=== PATIENT | male | born 1985 | race Caucasian/White ===

== ENCOUNTER 2019-12-17 08:18 | Inpatient (IN) | payer OTHER ==
[2019-12-17 08:26] VITALS: RESP 16
[2019-12-17] MEDS ORDERED: SODIUM CHLORIDE 0.9% 500 ML 500 ML IV STA (08:38)
--- NOTE | 2019-12-17 08:42 | ED ---
General Adult HPI <Tee Martínez - Last Filed: 12/17/19 11:23> - General Source: patient, EMS, RN notes reviewed, old records reviewed Mode of arrival: EMS Limitations: no limitations <Nahum Stubbs - Last Filed: 12/17/19 12:22> - General Chief complaint: Overdose Stated complaint: overdose Time Seen by Provider: 12/17/19 08:23 - History of Present Illness Initial comments: 34-year-old male patient presents to ED for evaluation of potential overdose. EMS reportedly reported to a callfor a potential heroin overdose. They stated they arrived on scene to find the patient unresponsive. Patient was administered 2 doses of intranasal Narcan and became responsive. Upon evaluation patient denies any drug usage. Patient reports that he does have right parasternal chest pains reproducible upon palpation he presses on it. Patient reports that he tested positive for Covid19 3 weeks ago at an emergency room in [facility]. Patient was he has not been at the hospital.. Reports he still has a mild cough. Denies any other complaints at this time. Systemic: Pt denies fatigue, fever/chills, rash. Pt denies weakness, night sweats, weight loss. Neuro: Pt denies headache, visual disturbances, syncope or pre-syncope. HEENT: Pt denies ocular discharge or irritation, otalgia, rhinorrhea, pharyngitis or notable lymphadenopathy. Cardiopulmonary: Pt denies SOB, heart palpitations, dyspnea on exertion. Abdominal/GI: Pt denies abdominal pain, n/v/d. : Pt denies dysuria, burning w/ urination, frequency/urgency. Denies new onset urinary or bowel incontinence. MSK: Pt denies myalgia, loss of strength or function in extremities. Neuro: Pt denies new onset weakness, paresthesias. (Nahum Stubbs) - Related Data Allergies Allergy/AdvReac Type Severity Reaction Status Date / Time NSAIDS (Non-Steroidal Allergy Rash/Hives Verified 12/17/19 08:59 Anti-Inflamma Review of Systems ROS Other: All systems not noted in ROS Statement are negative. <Tee Martínez - Last Filed: 12/17/19 11:23> ROS Other: All systems not noted in ROS Statement are negative. <Nahum Stubbs - Last Filed: 12/17/19 12:22> ROS Statement: Those systems with pertinent positive or pertinent negative responses have been documented in the HPI. Past Medical History History of Any Multi-Drug Resistant Organisms: None Reported Additional Past Surgical History / Comment(s): PT had a plate at fifth metacarpal in thright hand Past Psychological History: Unable to Obtain Smoking Status: Current every day smoker Past Alcohol Use History: Occasional Past Drug Use History: Prescription Drug Abuse <Nahum Stubbs - Last Filed: 12/17/19 12:22> General Exam Limitations: no limitations <Nahum Stubbs - Last Filed: 12/17/19 12:22> - General Exam Comments Initial Comments: Constitutional: NAD, AOX3, Pt has pleasant affect. HEENT: NC/AT, trachea midline, neck supple, no lymphadenopathy. Posterior pha rynx non erythematous, without exudates. External ears appear normal, without discharge. Mucous membranes moist. Eyes PERRLA, EOM intact. There is no scleral icterus. No pallor noted. Cardiopulmonary: RRR, no murmurs, rubs or gallops, no JVD noted. Rales noted in anterior and posterior lung tate.. No peripheral edema. Right parasternal chest pain reproducible upon palpation. Abdominal exam: Abdomen soft and non-distended. Abdomen non-tender to palpation in all 4 quadrants. Bowel sounds active in LLQ. No hepatosplenomegaly. No ecchymosis Neuro: CN II-XII intact. No nuchal rigidity. No raccon eyes, no perez sign, no hemotympanum. No cervical spinal tenderness. MSK: No posterior calf tenderness bilaterally, homans sign negative bilaterally. Posterior tibialis and radial pulse +2 bilaterally. Sensation intact in upper and lower extremities. Full active ROM in upper and lower extremities, 5/5 stregnth. (Nahum Stubbs) Course <Tee Martínez - Last Filed: 12/17/19 11:23> Vital Signs 12/17/19 12/17/19 12/17/19 08:20 08:26 09:26 Temperature 97.2 F L Pulse Rate 105 H 100 Respiratory 16 16 16 Rate Blood Pressure 145/98 136/80 O2 Sat by Pulse 97 91 L Oximetry 12/17/19 12/17/19 12/17/19 10:00 11:00 12:00 Temperature Pulse Rate 100 100 100 Respiratory 16 16 16 Rate Blood Pressure 132/87 123/80 131/86 O2 Sat by Pulse 98 98 98 Oximetry - Reevaluation(s) Reevaluation #1: 12/17/19 11:07 Patient remains drowsy in the room but arousable to voice. Results reviewed. Patient was tested positive for ramsey virus 2-3 weeks ago. Chest x-ray and computed tomography scan are concerning for ramsey virus. Patient had pulse ox that does occasionally go into the upper 80s. Patient has had some chest dis comfort. [facility] physician group paged for hospital admission. 12/17/19 11:23 Case was discussed with Dr. britton, who will admit. (Tee Martínez) Medical Decision Making - Lab Data Result diagrams: 12/17/19 09:05 12/17/19 09:05 <Tee Martínez - Last Filed: 12/17/19 11:23> - Lab Data Result diagrams: 12/17/19 09:05 12/17/19 09:05 - EKG Data -: EKG Interpreted by Me (and Dr. Martínez ) <Nahum Stubbs - Last Filed: 12/17/19 12:22> - Medical Decision Making 34-year-old male patient presents to ED for evaluation of potential overdose. EMS reportedly reported to a callfor a potential heroin overdose. They stated they arrived on scene to find the patient unresponsive. Patient was administered 2 doses of intranasal Narcan and became responsive. Upon evaluation patient denies any drug usage. Patient reports that he does have right parasternal chest pains reproducible upon palpation he presses on it. Patient reports that he tested positive for Covid19 3 weeks ago at an emergency room in [facility]. Patient was he has not been at the hospital.. Reports he still has a mild cough. Denies any other complaints at this time. Patient vital signs are stable, afebrile. Patient states that the pain is sharp and reproducible upon palpation. Rales are noted in anterior posterior lung tate. EKG was performed and then display any acute process. Laboratory investigations were obtained significant for leukocytosis of 13.2. D-dimer elevation of 8.16. Mild AKA I at 1.38. Hyperglycemia 188. Troponin negative. CRP negative. Salicylates were negative. Coronavirus was negative. Patient refused straight catheterization and still has not provided a urine sample. CT was performed which displayed diffuse groundglass opacities in upper lobes with peripheral groundglass opacities in the lower lobes suspicious for Covid 19 infection. On room air patient did desaturate into the low 90s. Was placed on oxygen. Patient is in no acute respiratory distress and his respirations are even and nonlabored. Patient will be admitted for further evaluation. Case discussed with Dr. Martínez. (Nahum Stubbs) - Lab Data Lab Results 12/17/19 12/17/19 12/17/19 Range/Units 09:05 09:05 09:05 WBC 17.2 H (3.8-10.6) k/uL RBC 5.60 (4.30-5.90) m/uL Hgb 16.7 (13.0-17.5) gm/dL Hct 50.5 (39.0-53.0) % MCV 90.2 (80.0-100.0) fL MCH 29.8 (25.0-35.0) pg MCHC 33.1 (31.0-37.0) g/dL RDW 13.6 (11.5-15.5) % Plt Count 258 (150-450) k/uL Neutrophils % 90 % Lymphocytes % 4 % Monocytes % 5 % Eosinophils % 1 % Basophils % 0 % Neutrophils # 15.6 H (1.3-7.7) k/uL Lymphocytes # 0.6 L (1.0-4.8) k/uL Monocytes # 0.8 (0-1.0) k/uL Eosinophils # 0.1 (0-0.7) k/uL Basophils # 0.1 (0-0.2) k/uL PT (9.0-12.0) sec INR (<1.2) APTT (22.0-30.0) sec D-Dimer (<0.60) mg/L FEU Sodium 136 L (137-145) mmol/L Potassium 4.3 (3.5-5.1) mmol/L Chloride 100 (98-107) mmol/L Carbon Dioxide 27 (22-30) mmol/L Anion Gap 9 mmol/L BUN 10 (9-20) mg/dL Creatinine 1.38 H (0.66-1.25) mg/dL Est GFR (CKD-EPI)AfAm 77 (>60 ml/min/1.73 sqM) Est GFR (CKD-EPI)NonAf 66 (>60 ml/min/1.73 sqM) Glucose 188 H (74-99) mg/dL Plasma Lactic Acid Reynaldo (0.7-2.0) mmol/L Calcium 8.7 (8.4-10.2) mg/dL Magnesium 2.2 (1.6-2.3) mg/dL Total Bilirubin 1.0 (0.2-1.3) mg/dL AST 37 (17-59) U/L ALT 22 (4-49) U/L Alkaline Phosphatase 56 (38-126) U/L Lactate Dehydrogenase 593 (313-618) U/L Troponin I <0.012 (0.000-0.034) ng/mL C-Reactive Protein <5.0 (<10.0) mg/L Total Protein 7.3 (6.3-8.2) g/dL Albumin 4.4 (3.5-5.0) g/dL Salicylates <1.0 mg/dL Acetaminophen <10.0 ug/mL Serum Alcohol <10 mg/dL Coronavirus (PCR) (Not Detectd) 12/17/19 12/17/19 12/17/19 Range/Units 09:05 09:05 09:05 WBC (3.8-10.6) k/uL RBC (4.30-5.90) m/uL Hgb (13.0-17.5) gm/dL Hct (39.0-53.0) % MCV (80.0-100.0) fL MCH (25.0-35.0) pg MCHC (31.0-37.0) g/dL RDW (11.5-15.5) % Plt Count (150-450) k/uL Neutrophils % % Lymphocytes % % Monocytes % % Eosinophils % % Basophils % % Neutrophils # (1.3-7.7) k/uL Lymphocytes # (1.0-4.8) k/uL Monocytes # (0-1.0) k/uL Eosinophils # (0-0.7) k/uL Basophils # (0-0.2) k/uL PT 11.7 (9.0-12.0) sec INR 1.2 H (<1.2) APTT 22.3 (22.0-30.0) sec D-Dimer 8.16 H (<0.60) mg/L FEU Sodium (137-145) mmol/L Potassium (3.5-5.1) mmol/L Chloride (98-107) mmol/L Carbon Dioxide (22-30) mmol/L Anion Gap mmol/L BUN (9-20) mg/dL Creatinine (0.66-1.25) mg/dL Est GFR (CKD-EPI)AfAm (>60 ml/min/1.73 sqM) Est GFR (CKD-EPI)NonAf (>60 ml/min/1.73 sqM) Glucose (74-99) mg/dL Plasma Lactic Acid Reynaldo 2.0 (0.7-2.0) mmol/L Calcium (8.4-10.2) mg/dL Magnesium (1.6-2.3) mg/dL Total Bilirubin (0.2-1.3) mg/dL AST (17-59) U/L ALT (4-49) U/L Alkaline Phosphatase (38-126) U/L Lactate Dehydrogenase (313-618) U/L Troponin I (0.000-0.034) ng/mL C-Reactive Protein (<10.0) mg/L Total Protein (6.3-8.2) g/dL Albumin (3.5-5.0) g/dL Salicylates mg/dL Acetaminophen ug/mL Serum Alcohol mg/dL Coronavirus (PCR) Not Detected (Not Detectd) - EKG Data EKG Comments: 1) ventricular rate 97, PA interval 180, QRS 84, QT/QTC 366/352. Normal sinus rhythm, normal EKG, no concern for acute ischemia. 2) ventricular rate 94, PA interval 176, QRS 86, QT/QTC 354/442. Normal sinus rhythm, normal EKG, no concern for acute ischemia. (Nahum Stubbs) Disposition <Tee Martínez - Last Filed: 12/17/19 11:23> Is patient prescribed a controlled substance at d/c from ED?: No <Nahum Stubbs - Last Filed: 12/17/19 12:22> Clinical Impression: COVID-19, Drug overdose Disposition: ADMITTED IP TO THIS HOSP Condition: Serious Referrals: Nonstaff,Physician [Primary Care Provider] - 1-2 days
--- NOTE | 2019-12-17 09:00 | XR ---
EXAMINATION TYPE: XR chest 1V portable DATE OF EXAM: 12/17/2019 HISTORY: chest pain. REFERENCE: NONE. FINDINGS: There is patchy, bilateral airspace disease. Pleural space are clear. Heart size is within normal limits. IMPRESSION: PATCHY BILATERAL AIRSPACE DISEASE.
[2019-12-17 09:27] LABS: Basophils # (A) 0.1 k/uL (0-0.2); Basophils % (A) 0 %; Eosinophils # (A) 0.1 k/uL (0-0.7); Eosinophils % (A) 1 %; HCT 50.5 % (39.0-53.0); HGB 16.7 gm/dL (13.0-17.5); Lymphocytes # (A) 0.6 k/uL (1.0-4.8); Lymphocytes % (A) 4 %; MCH 29.8 pg (25.0-35.0); MCHC 33.1 g/dL (31.0-37.0); MCV 90.2 fL (80.0-100.0); Mean Platelet Volume 7.6; Monocytes # (A) 0.8 k/uL (0-1.0); Monocytes % (A) 5 %; Neutrophils # (A) 15.6 k/uL (1.3-7.7); Neutrophils % (A) 90 %; Platelet Count 258 k/uL (150-450); RDW 13.6 % (11.5-15.5); WBC 17.2 k/uL (3.8-10.6)
[2019-12-17 09:38] LABS: ALT 22 U/L (4-49); AST 37 U/L (17-59); Acetaminophen <10.0 ug/mL; African American GFR (CKD) 77 (>60 ml/min/1.73 sqM); Albumin 4.4 g/dL (3.5-5.0); Alcohol <10 mg/dL; Alkaline Phosphatase 56 U/L (38-126); Anion Gap 9 mmol/L; Blood Urea Nitrogen 10 mg/dL (9-20); C Reactive Protein <5.0 mg/L (<10.0); Calcium 8.7 mg/dL (8.4-10.2); Carbon Dioxide 27 mmol/L (22-30); Chloride 100 mmol/L (98-107); Glucose 188 mg/dL (74-99); LDH 593 U/L (313-618); Magnesium 2.2 mg/dL (1.6-2.3); Non-African American GFR(CKD) 66 (>60 ml/min/1.73 sqM); Potassium 4.3 mmol/L (3.5-5.1); Salicylate <1.0 mg/dL; Sodium 136 mmol/L (137-145); Total Protein 7.3 g/dL (6.3-8.2)
[2019-12-17 09:48] LABS: INR 1.2 (<1.2); Partial Thromboplastin Time 22.3 sec (22.0-30.0); Prothrombin Time 11.7 sec (9.0-12.0)
[2019-12-17 09:54] LABS: D-Dimer 8.16 mg/L FEU (<0.60)
[2019-12-17] MEDS ORDERED: SODIUM CHLORIDE 0.9% 500 ML 500 ML IV ONE ×2 (09:59→11:55)
[2019-12-17] MEDS ORDERED: NALOXONE 0.4 MG/ML 10 ML VIAL IVP STA (10:03)
[2019-12-17] MEDS ORDERED: AZITHROMYCIN 500 MG in SODIUM CHLORIDE 0.9% 250 ML IVPB STA (10:07)
--- NOTE | 2019-12-17 10:42 | CT ---
EXAMINATION TYPE: CT chest angio for PE DATE OF EXAM: 12/17/2019 COMPARISON: None. HISTORY: elevated ddimer, sob CT DLP: 447.4 mGycm Automated exposure control for dose reduction was used. CONTRAST: CT Chest for pulmonary embolism performed with with IV Contrast, patient injected with 100 mL of Isov ue 370. FINDINGS: There is diffuse groundglass opacity within the upper lobes bilaterally and scattered, rudy pheral groundglass opacities in the lower lobes bilaterally. There is no significant axillary, mediastinal or hilar adenopathy. There is no evidence of pulmonary embolus. The aorta is normal in caliber without evidence of dissection. There is no pleural or pericardial fluid. The heart is not enlarged. There is no evidence of right he art strain. Visualized portions of the upper abdomen are unremarkable. IMPRESSION: 1. This examination is negative for pulmonary embolus. 2. Diffuse groundglass opacities in the upper lobes with peripheral groundglass opacities in the lowe r lobes bilaterally suspicious for Covid 19 infection.
[2019-12-17] MEDS ORDERED: ZINC SULFATE 220 MG CAP PO ONE (11:15)
[2019-12-17] MEDS ORDERED: ASCORBIC ACID 500 MG TAB PO ONE (11:15)
[2019-12-17] MEDS ORDERED: ACETAMINOPHEN TAB 325 MG TAB PO PRN (12:03)
[2019-12-17] MEDS ORDERED: NALOXONE 0.4 MG/ML 1 ML VIAL IV PRN (12:03)
[2019-12-17] MEDS ORDERED: SODIUM CHLORIDE 0.9% 1,000 ML IV SCH (12:15)
[2019-12-17 15:43] LABS: Appearance,Urine Clear (Clear); Bilirubin,Urine Negative (Negative); Blood,Urine Negative (Negative); Color,Urine Yellow; Glucose,Urine (UA) Negative (Negative); Ketones,Urine 1+ (Negative); Leukocyte Esterase,Urine Negative (Negative); Nitrite,Urine Negative (Negative); PH, Urine 5.5 (5.0-8.0); Protein,Urine Trace (Negative); Urobilinogen,Urine <2.0 mg/dL (<2.0)
--- NOTE | 2019-12-17 15:56 | P.CNPUL ---
History of Present Illness Consult date: 12/17/19 Requesting physician: Alina Peters Reason for consult: dyspnea, abnormal CXR/CT Chief complaint: Found unresponsive History of present illness: This is a 34-year-old gentleman with a history of chronic and ongoing tobacco dependence, prescription drug abuse, alcohol abuse. He was brought into the emergency room earlier this morning after being found on the ground outside of home on [facility]. Friends who are at the scene told first responders he may have had a heroin overdose. EMS did administer 2 doses of intranasal Narcan and the patient became responsive. He was able to protect his airway. He was brought into the emergency room for further evaluation. Chest x-ray revealed patchy bilateral airspace disease. CT angiogram ruled out pulmonary embolism. There was diffuse groundglass opacities in the upper lobes with peripheral groundglass opacities in the lower lobes. Suspicious for June 11 infection.: Screening test here was negative. He was admitted to the hospital for further evaluation. He is seen today in consultation on the regular medical floor. He is awake and alert. He is unclear of to most of the events of last night and into this morning. He was unaware that he was found on the ground. He states he may have used heroin. He also states approximately 3 weeks ago he was pulled over for drunk driving and arrested and then a [facility]. He states several officers had tested positive for cocaine and he was tested and also found to be positive. From assisted he was at a rehab facility unless [facility]. From there he states he was at his parent's home in the [facility] area. While there he had developed significant shortness of breath and chest pain and EMS was called but did not take him in for any treatment. He was here in [place] on visiting friends. He is currently maintaining O2 saturations in the upper 90s on 3 L/m per nasal cannula. He's been afebrile. Hemodynamically stable. White count 17.2. Hemoglobin 16.7. Lymphocytes 0.6. D-dimer 8.16. Sodium 136. Potassium 4.3. Creatinine 1.38. LDH 593. C-reactive protein less than 5. Coated screen negative. Urine drug screen pending. He was having difficulty voiding. He had received a dose of ceftriaxone and azithromycin in the emergency room. He was initiated on zinc and vitamin C. Review of Systems REVIEW OF SYSTEMS: CONSTITUTIONAL: Denies any recent significant weight loss or weight gain. EYES: Denies change in vision. EARS, NOSE, MOUTH, THROAT: Denies headaches, denies sore throat. CARDIOVASCULAR: Positive for midsternal chest pain, no palpitations or syncopal episodes. RESPIRATORY: Positive for shortness of breath, no cough, congestion or hemoptysis. GASTROINTESTINAL: Denies change in appetite, denies abdominal pain GENITOURINARY: Denies hematuria, denies infections. MUSKULOSKELETAL: Denies pain, denies swelling. INTEGUMENTARY: Denies rash, denies eczema. NEUROLOGICAL: Denies recent memory loss, no recent seizure activity. PSYCHIATRIC: Denies anxiety, denies depression. HEMATOLOGIC/LYMPHATIC: Denies anemia, denies enlarged lymph nodes. Past Medical History Additional Past Medical History / Comment(s): The patient was recently arrested for DUI in [place]. He states he tested positive for CoVID 19 and completed quarantine. History of Any Multi-Drug Resistant Organisms: None Reported Additional Past Surgical History / Comment(s): PT had a plate at fifth metacarpal in thright hand Past Psychological History: Unable to Obtain Smoking Status: Current every day smoker Past Alcohol Use History: Occasional Past Drug Use History: Prescription Drug Abuse Additional Drug Use History / Comment(s): Friends at the scene 12/17/2019 stated he had used heroin. Additional History: Patient is unaware of any significant family history. Medications and Allergies Allergies Allergy/AdvReac Type Severity Reaction Status Date / Time NSAIDS (Non-Steroidal Allergy Rash/Hives Verified 12/17/19 08:59 Anti-Inflamma Physical Exam Vitals: Vital Signs Temp Pulse Resp BP Pulse Ox 12/17/19 13:27 79 16 118/75 98 12/17/19 13:00 79 16 118/75 98 12/17/19 12:00 100 16 131/86 98 12/17/19 11:00 100 16 123/80 98 12/17/19 10:00 100 16 132/87 98 12/17/19 09:26 100 16 136/80 91 L 12/17/19 08:26 16 12/17/19 08:20 97.2 F L 105 H 16 145/98 97 Intake and Output 12/17/19 12/17/19 12/17/19 06:59 14:59 22:59 Other: Weight 90.718 kg GENERAL EXAM: Alert, alert, somewhat of a poor historian, on 3 L nasal cannula, comfortable in no apparent distress. HEAD: Normocephalic. EYES: Normal reaction of pupils, equal size. NOSE: Clear with pink turbinates. THROAT: No erythema or exudates. NECK: No masses, no JVD. CHEST: No chest wall deformity. LUNGS: Equal air entry with few scattered rhonchi. CVS: S1 and S2 normal with no audible murmur, regular rhythm. ABDOMEN: No hepatosplenomegaly, normal bowel sounds, no guarding or rigidity. SPINE: No scoliosis or deformity SKIN: No rashes, multiple tattoos CENTRAL NERVOUS SYSTEM: No focal deficits, tone is normal in all 4 extremities. EXTREMITIES: There is no peripheral edema. No clubbing, no cyanosis. Periphera l pulses are intact. Results - Laboratory Findings CBC and BMP: 12/17/19 09:05 12/17/19 09:05 PT/INR, D-dimer PT 11.7 sec (9.0-12.0) 12/17/19 09:05 INR 1.2 (<1.2) H 12/17/19 09:05 D-Dimer 8.16 mg/L FEU (<0.60) H 12/17/19 09:05 Abnormal lab findings: Abnormal Labs 12/17/19 12/17/19 12/17/19 09:05 09:05 09:05 WBC 17.2 H Neutrophils # 15.6 H Lymphocytes # 0.6 L INR 1.2 H D-Dimer 8.16 H Sodium 136 L Creatinine 1.38 H Glucose 188 H - Diagnostic Findings Chest x-ray: image reviewed CT scan - chest: image reviewed Assessment and Plan Assessment: 1 Altered mental status, unresponsive on the ground with suspected heroin overdose, responded to 2 A of Narcan. 2 Acute hypoxic respiratory failure secondary to recent CoVID 19 infection. Computed tomography scan reveals evidence of groundglass opacities in the upper lobes with peripheral groundglass opacities in the lower lobes. 3 Recent incarceration secondary to a DUI in the [place] area with subsequent rehabilitation at a facility in [facility]. 4 Chronic and ongoing tobacco dependence 5 Alcohol use 6 History of prescription drug abuse Plan: The patient was seen and evaluated by Dr. Hammond Chest x-ray, labs and computed tomography scan reviewed Consistent with post Covid 19 infection and/or aspiration Add Augmentin starting tomorrow Add IV Solu-Medrol 60 every 12 hours Titrate off the FiO2 as tolerate We'll continue to follow I, the cosigning physician, performed a history & physical examination of the patient. Lungs sounds with bilateral scattered rhonchi. Maintaining good O2 saturations in the 90s on 3 L/m per nasal cannula. I discussed the assessment and plan of care with my nurse practitioner, Emilie Son. I attest to the above consultation as dictated by her. Time with Patient: Greater than 30
[2019-12-17] MEDS ORDERED: ASCORBIC ACID 500 MG TAB PO SCH (16:00)
[2019-12-17 16:21] LABS: Amphetamine Screen,Urine Detected (NotDetected); Barbiturate Screen,Urine Not Detected (NotDetected); Benzodiazepines Screen,Urine Not Detected (NotDetected); Cocaine Screen,Urine Not Detected (NotDetected); Methadone Screen, Urine Not Detected (NotDetected); Opiate Screen,Urine Detected (NotDetected); Oxycodone Screen, Urine Not Detected (NotDetected); Phencyclidine Screen,Urine Detected (NotDetected); Tricyclic Antidepressant,Urine Not Detected (NotDetected); Urn Cannabinoid Scrn Detected (NotDetected)
[2019-12-17 16:25] LABS: Specific Gravity,Urine >1.050 (1.001-1.035)
[2019-12-17 16:28] VITALS: BP 138/75; PULSE 80; TEMP 97.5
[2019-12-17] MEDS ORDERED: methylPREDNISolone SOD SUCCI 125 MG/2 ML VIAL IV SCH (21:00)
[2019-12-17] MEDS ORDERED: AMOXIC-POT CLAV 875-125MG 1 EACH TAB PO SCH (21:00)
[2019-12-18] MEDS ORDERED: ZINC SULFATE 220 MG CAP PO SCH (09:00)
[2019-12-19 10:59] LABS: Ferritin 60.9 ng/mL (22.0-322.0)
--- NOTE | 2019-12-28 08:25 | P.PN ---
Progress Note - Text Progress Note Date: 12/28/19 This patient was not seen by me. He had left AGAINST MEDICAL ADVICE prior to being seen. Nursing had told me that patient had left AGAINST MEDICAL ADVICE after he had left the room.
== END 2019-12-17 16:44 | disposition left against medical advice (07) | DRG 917 ==
LOC: EC 08:18 → 4SSUR 11:23
PROVIDERS: ADMIT Family Medicine; ATTEND Family Medicine
DX: T40.1X1A Poisoning by heroin, accidental (unintentional), initial encounter (principal); J96.01 Acute respiratory failure with hypoxia; F17.200 Nicotine dependence, unspecified, uncomplicated; F10.10 Alcohol abuse, uncomplicated; R73.9 Hyperglycemia, unspecified; Z88.6 Allergy status to analgesic agent; Z86.19 Personal history of other infectious and parasitic diseases
CPT/HCPCS: 36415; 71045; 71275; 80053; 80306; 80320; 80329; 81003; 82728; 83520; 83605; 83615; 83735; 84145; 84484; 85025; 85379; 85610; 85730; 86140; 87040; 87635; 93005; 96361; 96365; 96366; 99285